=== PATIENT | female | born 1945 | race Caucasian/White ===

== ENCOUNTER 2017-11-19 09:13 | Outpatient (CLI) | payer MEDICARE | END 2017-11-19 09:14 | disposition home or self-care (01) | LOC: BICMAMMO 09:13 | PROVIDERS: ATTEND Obstetrics & Gynecology | DX: Z12.31 Encounter for screening mammogram for malignant neoplasm of breast (principal); Z13.820 Encounter for screening for osteoporosis; R92.1 Mammographic calcification found on diagnostic imaging of breast | CPT/HCPCS: 77063; 77067; 77080 ==

== ENCOUNTER 2018-01-21 08:32 | Outpatient (CLI) | payer MEDICARE ==
--- NOTE | 2018-01-21 16:39 | NM ---
NUCLEAR MEDICINE BRAIN IMAGING: Date: 01/21/18 HISTORY: Parkinson's disease. TECHNIQUE: A DaTscan with axial tomographic images of the brain was obtained 3 hours following the intravenous a dministration of 5 mCi Iodine-123 Ioflupane. The patient was pretreated with 130 mg of potassium iodi de orally 1 hour prior to the injection. FINDINGS: There is loss of symmetry of uptake in the striata. Period-shaped uptake is seen in the striata bilat erally. IMPRESSION: Findings are consistent with Parkinson's disease. POS: [facility]
== END 2018-01-21 08:33 | disposition home or self-care (01) ==
LOC: NM 08:32
PROVIDERS: ATTEND Psychiatry & Neurology Neurology
DX: G20 Parkinson's disease (principal)
CPT/HCPCS: 78607; A9584

== ENCOUNTER 2018-11-22 10:16 | Outpatient (CLI) | payer MEDICARE ==
--- NOTE | 2018-11-22 11:00 | MMO ---
Bilateral MAMMO Bilat Screen [facility]. CLINICAL HISTORY: Patient is 73 years old and is seen for screening. The patient has no family history of breast cancer. The patient has no personal history of cancer. VIEWS: The views performed were: bilateral craniocaudal with tomosynthesis and bilateral mediolateral oblique with tomosynthesis. FILMS COMPARED: The present examination has been compared to prior imaging studies performed at [facility] on 11/14/2014, 11/16/2015, 11/18/2016 and 11/19/2017. MAMMOGRAM FINDINGS: The breasts are heterogeneously dense, which could obscure a lesion on mammography. There are benign appearing calcifications seen in both breasts. There are no suspicious masses, suspicious calcifications, or new areas of architectural distortion. IMPRESSION: THERE IS NO MAMMOGRAPHIC EVIDENCE OF MALIGNANCY. A ROUTINE FOLLOW-UP MAMMOGRAM IN 1 YEAR IS RECOMMENDED. THE RESULTS OF THIS EXAM WERE SENT TO THE PATIENT. ACR BI-RADS Category 2 - Benign finding MAMMOGRAPHY NOTE: 1. A negative mammogram report should not delay a biopsy if a dominant of clinically suspicious mass is present. 2. Approximately 10% to 15% of breast cancers are not detected by mammography. 3. Adenosis and dense breasts may obscure an underlying neoplasm. Reported by: WILLY HOPKINS MD Electonically Signed: [id number]
--- NOTE | 2018-11-22 12:15 | BD ---
DEXA BONE DENSITY STUDY: Date: 11/22/18 HISTORY: 73-year-old postmenopausal female for screening. COMPARISON: 11/19/17. FINDINGS: Lumbar Spine: BMD (g/cm2) L1 0.734 T-Score: -2.3 L2 0.800 T-Score: -2.1 L3 0.852 T-Score: -2.1 L4 0.868 T-Score: -1.8 L1-L4 0.817 T-Score: -2.1 Left Femoral Neck: 0.558 T-Score: -2.6 Total Femur: 0.694 T-Score: -2.0 IMPRESSION: Osteoporosis. POS: [facility]
== END 2018-11-22 10:17 | disposition home or self-care (01) ==
LOC: BICMAMMO 10:16
PROVIDERS: ATTEND Obstetrics & Gynecology
DX: Z12.31 Encounter for screening mammogram for malignant neoplasm of breast (principal); Z13.820 Encounter for screening for osteoporosis; M81.0 Age-related osteoporosis without current pathological fracture
CPT/HCPCS: 77063; 77067; 77080

== ENCOUNTER 2019-09-07 08:36 | Day surgery (SDC) | payer MEDICARE ==
[2019-09-06 14:04] VITALS: BMI 21.1
[2019-09-07 08:53] LABS: #Basophils 0.1 thou/uL (0.0-0.2); #Eosinphils 0.3 thou/uL (0.0-0.7); #Lymphocytes 1.3 thou/uL (1.20-3.40); #Monocytes 0.6 thou/uL (0.11-0.59); #Neutrophils 5.7 thou/uL (1.40-6.50); %Basophils 1.2 % (0.0-1.0); %Eosinophils 3.2 % (0.0-10.0); %Lymphocytes 16.1 % (21.0-51.0); %Monocytes 8.1 % (0.0-10.0); %Neutrophils 71.4 % (42.0-75.0); Hemoglobin 14.6 g/dL (12.0-16.0); Mean Corpuscular HGB CONC 32.8 g/dL (32.0-36.0); Mean Corpuscular Hemoglobin 30.3 pg (27.0-31.0); Mean Corpuscular Volume 92.3 fL (78.0-98.0); Mean Platelet Volume 6.4 fL (7.4-10.4); Platelet Count 323 thou/uL (130-400); RBC Distribution Width 11.5 % (11.5-14.5); Red Blood Cell (RBC) Count 4.81 mill/uL (4.20-5.40); White Blood Cell (WBC) Count 7.9 thou/uL (4.8-10.8)
[2019-09-07 08:59] LABS: INR-International Normal Ratio 0.9; Prothrombin Time 12.4 sec (12.0-14.7)
[2019-09-07 09:00] LABS: PTT 30.9 SEC (22.9-36.1)
[2019-09-07 12:15] VITALS: BP 180/66; TEMP 98.2
--- NOTE | 2019-09-07 12:24 | RAD ---
CHEST 1 VIEW: Date: 09/07/2019 HISTORY: Status post lung biopsy. RT UPPER LOBE MASS COMPARISON: Lung biopsy CT scan images. FINDINGS: 4.0 cm diameter poorly circumscribed right upper lobe lung mass with some minimal associated volume l oss. No evidence for pneumothorax. No pleural effusion. Heart size is normal. The left lung is clear. Atherosclerosis of aorta. IMPRESSION: Right upper lobe lung mass without pneumothorax. POS: [facility]
--- NOTE | 2019-09-07 14:40 | RAD ---
EXAM: CHEST ONE VIEW HISTORY: Post right upper lobe mass biopsy. COMPARISON: 09/07/2019 at 1202 hours FINDINGS: The cardiac silhouette and pulmonary vasculature is within normal limits. The medially located right upper lobe lung mass is again seen. No pneumothorax or pleural effusion is identified. There is a nodular density overlying the lateral right lung base which may be artifactual as this is not seen on prior chest x-ray, and no corresponding abnormality was seen on CT thorax on 08/29/2019. Left lung remains clear. Vascular calcifications are again seen in the thoracic aorta. No other interval change . IMPRESSION: Right upper lobe lung mass without pneumothorax. Chest is stable compared to prior study.
--- NOTE | 2019-09-07 15:37 | CT ---
PROCEDURE: CT Lung Perc Biopsy PROVIDED CLINICAL HISTORY: Cavitating right upper lobe mass. Biopsy was requested. COMPARISON: CT thorax 08/29/2019 TECHNIQUE: The procedure including the risks and complications were explained to the patient, and informed conse nt was obtained. The patient was placed on the CT scan table in the prone procedure. Conscious sedation was performed with the intravenous administration of fentanyl and Versed. Patient was monito red for approximately 30 minutes throughout the procedure. Limited noncontrasted CT scan was obtained through the level of the right upper lobe mass with grid l ocalizer in place. An area was marked and then meticulously prepped and draped in usual sterile fashion. The skin and subcutaneous tissues were infiltrated with buffered 1% lidocaine for local anes thesia. A small skin incision was made. A 19-gauge guide needle was advanced followed by axial noncontrasted CT images. This was repeated unt il the needle was positioned in the most posterior peripheral aspect of the right upper lobe mass. A total of five 20-gauge core needle biopsy specimens were then obtained. The needle was removed, and hemostasis was achieved with direct pressure. Follow-up noncontrasted CT scan through the upper lobes demonstrates no pneumothorax or pleural fluid. Patient tolerated the procedure well and without immediate complication. Patient was transported to radiology nurses holding for further monitoring prior to discharge. Chest x-ray was performed immediately post procedure as well as 2 hours postproce dure, and no pneumothorax or pleural fluid was seen. IMPRESSION: 1. Cavitated right upper lobe mass. 2. Technically successful percutaneous biopsy of right upper lobe mass. A total of 5 core needle biop sy specimens were obtained with a 20-gauge needle, but only a minimal amount of tissue was obtained with each biopsy. Final pathology is pending.
== END 2019-09-07 15:00 | disposition home or self-care (01) ==
LOC: CT 08:36
PROVIDERS: ATTEND Internal Medicine Critical Care Medicine
PROC: 0BBK3ZX Excision of Right Lung, Percutaneous Approach, Diagnostic (ICD-10-PCS; principal; 2019-09-07)
DX: R91.8 Other nonspecific abnormal finding of lung field (principal); G20 Parkinson's disease; F41.9 Anxiety disorder, unspecified; M81.0 Age-related osteoporosis without current pathological fracture; Z79.899 Other long term (current) drug therapy; Z87.891 Personal history of nicotine dependence; Z88.0 Allergy status to penicillin
CPT/HCPCS: 32405; 71045; 77012; 85025; 85610; 85730; 88305; 88333; 88334; 88341; 88342; 88360

== ENCOUNTER 2019-09-20 10:32 | Outpatient (CLI) | payer MEDICARE ==
--- NOTE | 2019-09-20 16:06 | PET ---
Radionucleotide PET scan with CT attenuation correction HISTORY: Right upper lobe lung cancer. Initial staging. FINDINGS: Physiologic uptake of radiotracer throughout the enteric system and along each urinary trac t. Markedly increased uptake associated with the large mass in the posterior segment right upper lobe sh ows max SUV 57.7. No other hypermetabolic lung lesions. No hypermetabolic adenopathy. Nondiagnostic CT attenuation correction images show old healed left rib fractures. Prominent calcific ation throughout the arterial structures. IMPRESSION : Pathologic hypermetabolic activity limited to the large right lung mass. No evidence of metastatic di sease. Atherosclerosis.
== END 2019-09-20 10:33 | disposition home or self-care (01) ==
LOC: PET 10:32
PROVIDERS: ATTEND Internal Medicine Critical Care Medicine
DX: C34.90 Malignant neoplasm of unspecified part of unspecified bronchus or lung (principal); I70.90 Unspecified atherosclerosis
CPT/HCPCS: 78815; A9552

== ENCOUNTER 2019-12-29 08:51 | Outpatient (CLI) | payer MEDICARE, OTHER ==
--- NOTE | 2019-12-29 10:24 | BD ---
DEXA BONE DENSITY STUDY: HISTORY: Postmenopausal. FINDINGS: Lumbar Spine: BMD (g/cm2) L1 0.776 T-Score: -1.9 L2 0.834 T-Score: -1.8 L3 0.888 T-Score: -1.8 L4 0.907 T-Score: -1.4 L1-L4 0.856 T-Score: -1.7 Femoral Neck: 0.609 T-Score: -2.2 Total Femur: 0.748 T-Score: -1.6 Impression: Osteopenia of the lumbar spine and left femoral neck. POS: [facility]
--- NOTE | 2019-12-29 13:07 | MMO ---
Bilateral MAMMO Bilat Screen [facility]. CLINICAL HISTORY: Patient is 74 years old and is seen for screening. The patient has no family history of breast cancer. The patient has no personal history of cancer. VIEWS: The views performed were: bilateral craniocaudal with tomosynthesis and bilateral mediolateral oblique with tomosynthesis. FILMS COMPARED: The present examination has been compared to prior imaging studies performed at [facility] on 11/16/2015, 11/18/2016, 11/19/2017 and 11/22/2018. This study has been interpreted with the assistance of computer-aided detection. MAMMOGRAM FINDINGS: The breasts are heterogeneously dense, which could obscure a lesion on mammography. Benign calcifications are noted bilaterally. There are no suspicious masses, suspicious calcifications, or new areas of architectural distortion. IMPRESSION: THERE IS NO MAMMOGRAPHIC EVIDENCE OF MALIGNANCY. A ROUTINE FOLLOW-UP MAMMOGRAM IN 1 YEAR IS RECOMMENDED. THE RESULTS OF THIS EXAM WERE SENT TO THE PATIENT. ACR BI-RADS Category 2 - Benign finding MAMMOGRAPHY NOTE: 1. A negative mammogram report should not delay a biopsy if a dominant of clinically suspicious mass is present. 2. Approximately 10% to 15% of breast cancers are not detected by mammography. 3. Adenosis and dense breasts may obscure an underlying neoplasm. Reported by: ANAND LLANES MD Electonically Signed: [id number]
== END 2019-12-29 08:52 | disposition home or self-care (01) ==
LOC: BICMAMMO 08:51
PROVIDERS: ATTEND Obstetrics & Gynecology
DX: Z12.31 Encounter for screening mammogram for malignant neoplasm of breast (principal); Z13.820 Encounter for screening for osteoporosis; M85.89 Other specified disorders of bone density and structure, multiple sites
CPT/HCPCS: 77063; 77067; 77080

== ENCOUNTER 2020-02-20 08:52 | Outpatient (CLI) | payer MEDICARE, OTHER ==
[2020-02-20 09:22] LABS: Estimated GFR-MDRD - POC Greater than 90
[2020-02-20] MEDS ORDERED: Iopamidol-370 76% 500 ML 1 ML ONE (13:40)
--- NOTE | 2020-02-20 14:34 | CT ---
CT OF CHEST PERFORMED WITH CONTRAST ENHANCEMENT: Date: 02/20/2020 HISTORY: Lung cancer. COMPARISON: 08/29/2019 exam. FINDINGS: The right upper lobe lung mass which has a small cavitary component has diminished in size, measuring approximately 4.6 cm, now measuring 2.6 cm. There has been development of some anterior peripheral p leural based parenchymal changes, probably related to scarring since that prior study. The left lung is clear. There is no significant mediastinal or hilar adenopathy. No significant axillary adenopathy. Visualized liver parenchyma shows no focal findings. Right and left adrenal glands are unremarkable. No lytic or blastic bony change. IMPRESSION: Definite decrease in size of the right upper lobe apical lung mass, decreasing from approximately 4.6 cm to 2.6 cm in size. There has been development of some pleural based parenchymal opacities in the right upper lobe. This may be on the basis of the radiation. POS: [facility]
== END 2020-02-20 08:53 | disposition home or self-care (01) ==
LOC: BICCT 08:52
PROVIDERS: ATTEND Radiology Radiation Oncology
DX: C34.11 Malignant neoplasm of upper lobe, right bronchus or lung (principal); R91.8 Other nonspecific abnormal finding of lung field; Z92.3 Personal history of irradiation
CPT/HCPCS: 71260; 82565; Q9967

== ENCOUNTER 2020-08-13 09:21 | Outpatient (CLI) | payer MEDICARE, OTHER ==
[2020-08-13 09:54] LABS: Estimated GFR-MDRD - POC Greater than 90
== END 2020-08-13 09:22 | disposition home or self-care (01) ==
LOC: BICCT 09:21
PROVIDERS: ATTEND Radiology Radiation Oncology
DX: C34.11 Malignant neoplasm of upper lobe, right bronchus or lung (principal)
CPT/HCPCS: 71260; 82565

== ENCOUNTER 2020-12-06 | Outpatient (CLI) | payer MEDICARE, OTHER | END 2020-12-06 12:20 | disposition home or self-care (01) | DX: C34.11 Malignant neoplasm of upper lobe, right bronchus or lung (principal); R07.9 Chest pain, unspecified; R91.8 Other nonspecific abnormal finding of lung field | CPT/HCPCS: 72146 ==

== ENCOUNTER 2020-12-10 11:46 | Outpatient (CLI) | payer MEDICARE, OTHER ==
[2020-12-10] MEDS ORDERED: Magnevist 469MG/ML 20 ML VIAL ONE (15:23)
[2020-12-11 09:44] LABS: Estimated GFR-MDRD - POC Greater than 90
== END 2020-12-10 11:47 | disposition home or self-care (01) ==
LOC: BICMRI 11:46
PROVIDERS: ATTEND Psychiatry & Neurology Neurology
DX: Z00.00 Encounter for general adult medical examination without abnormal findings (principal)
CPT/HCPCS: 71552; 82565; A9579

== ENCOUNTER 2020-12-28 10:28 | Outpatient (CLI) | payer MEDICARE, OTHER ==
[2020-12-28 11:22] LABS: Estimated GFR-MDRD - POC Greater than 90
== END 2020-12-28 10:29 | disposition home or self-care (01) ==
LOC: BICCT 10:28
PROVIDERS: ATTEND Radiology Radiation Oncology
DX: C34.11 Malignant neoplasm of upper lobe, right bronchus or lung (principal)
CPT/HCPCS: 71260; 82565

== ENCOUNTER 2020-12-31 10:06 | Outpatient (CLI) | payer MEDICARE, OTHER | END 2020-12-31 10:07 | disposition home or self-care (01) | LOC: BICMAMMO 10:06 | PROVIDERS: ATTEND Obstetrics & Gynecology | DX: Z13.820 Encounter for screening for osteoporosis (principal); M85.89 Other specified disorders of bone density and structure, multiple sites; M81.0 Age-related osteoporosis without current pathological fracture | CPT/HCPCS: 77080 ==

== ENCOUNTER 2021-01-16 09:18 | Outpatient (CLI) | payer MEDICARE, OTHER | END 2021-01-16 09:19 | disposition home or self-care (01) | LOC: BICMAMMO 09:18 | PROVIDERS: ATTEND Internal Medicine | DX: Z12.31 Encounter for screening mammogram for malignant neoplasm of breast (principal) | CPT/HCPCS: 77063; 77067 ==

== ENCOUNTER 2021-09-21 10:58 | Emergency (ER) | payer MEDICARE, OTHER ==
[2021-09-21] MEDS ORDERED: Acetaminophen 325 MG TAB ONE (12:00)
[2021-09-21] MEDS ORDERED: Ibuprofen 200 MG TAB ONE (12:00)
[2021-09-21 12:52] LABS: #Eosinphils 0.1 thou/uL (0.0-0.7); #Monocytes 0.5 thou/uL (0.11-0.59); #Neutrophils 3.5 thou/uL (1.40-6.50); %Basophils 0.8 % (0.0-1.0); %Eosinophils 1.5 % (0.0-10.0); %Lymphocytes 19.9 % (21.0-51.0); %Monocytes 9.2 % (0.0-10.0); %Neutrophils 68.5 % (42.0-75.0); Hemoglobin 14.4 g/dL (12.0-16.0); Mean Corpuscular HGB CONC 33.5 g/dL (32.0-36.0); Mean Corpuscular Hemoglobin 31.6 pg (27.0-31.0); Mean Corpuscular Volume 94.5 fL (78.0-98.0); Mean Platelet Volume 6.3 fL (7.4-10.4); Platelet Count 256 thou/uL (130-400); RBC Distribution Width 11.6 % (11.5-14.5); Red Blood Cell (RBC) Count 4.55 mill/uL (4.20-5.40); White Blood Cell (WBC) Count 5.1 thou/uL (4.8-10.8)
[2021-09-21 13:16] LABS: ALT (SGPT) Less than 7 U/L (8-55); AST (SGOT) 17 U/L (5-34); Albumin 4.3 g/dL (3.4-4.8); Alkaline Phosphatase 44 U/L (40-110); Anion Gap 13 mmol/L (10-20); BUN (Urea Nitrogen) 16 mg/dL (9.8-20.1); Bilirubin, Total 0.5 mg/dL (0.2-1.2); Calc. Creatinine Clearance 0 mL/min (70-130); Calcium 8.8 mg/dL (7.8-10.44); Carbon Dioxide 23 mmol/L (23-31); Chloride 107 mmol/L (98-107); Globulin 2.8 g/dL (2.4-3.5); Glucose 87 mg/dL (83-110); Potassium 4.2 mmol/L (3.5-5.1); Protein, Total 7.1 g/dL (5.8-8.1); Sodium 139 mmol/L (136-145)
== END 2021-09-21 14:08 | disposition home or self-care (01) ==
LOC: ERS 10:58
DX: S20.212A Contusion of left front wall of thorax, initial encounter (principal); G20 Parkinson's disease; D49.89 Neoplasm of unspecified behavior of other specified sites; W18.00XA Striking against unspecified object with subsequent fall, initial encounter; Z87.891 Personal history of nicotine dependence; Z85.118 Personal history of other malignant neoplasm of bronchus and lung; Z79.899 Other long term (current) drug therapy
CPT/HCPCS: 36415; 71046; 80053; 84484; 85025; 93005; 94760

== ENCOUNTER 2022-01-15 12:38 | Outpatient (CLI) | payer MEDICARE, OTHER ==
[~2022-01-15 12:38] MED LIST: Iopamidol 370 76% 100 ML VIAL ONE
== END 2022-01-15 12:39 | disposition home or self-care (01) ==
LOC: CT 12:38
PROVIDERS: ATTEND Radiology Radiation Oncology
DX: C34.11 Malignant neoplasm of upper lobe, right bronchus or lung (principal); Z98.890 Other specified postprocedural states
CPT/HCPCS: 71260; 82565; Q9967

== ENCOUNTER 2022-03-05 10:04 | Outpatient (CLI) | payer MEDICARE, OTHER | END 2022-03-05 10:05 | disposition home or self-care (01) | LOC: BICMAMMO 10:04 | PROVIDERS: ATTEND Obstetrics & Gynecology | DX: M81.0 Age-related osteoporosis without current pathological fracture (principal); M85.88 Other specified disorders of bone density and structure, other site | CPT/HCPCS: 77080 ==

== ENCOUNTER 2022-07-11 09:36 | Outpatient (CLI) | payer MEDICARE, OTHER ==
[2022-07-11] MEDS ORDERED: Iopamidol 370 76% 100 ML VIAL ONE (11:43)
== END 2022-07-11 09:37 | disposition home or self-care (01) ==
LOC: CT 09:36
PROVIDERS: ATTEND Radiology Radiation Oncology
DX: C34.11 Malignant neoplasm of upper lobe, right bronchus or lung (principal); Z98.890 Other specified postprocedural states
CPT/HCPCS: 71260; 82565; Q9967

== ENCOUNTER 2023-02-09 11:23 | Outpatient (CLI) | payer MEDICARE, OTHER | END 2023-02-09 11:24 | disposition home or self-care (01) | LOC: BICMAMMO 11:23 | PROVIDERS: ATTEND Obstetrics & Gynecology | DX: Z12.31 Encounter for screening mammogram for malignant neoplasm of breast (principal) | CPT/HCPCS: 77063; 77067 ==